=== PATIENT | female | born 1985 | race Caucasian/White ===

== ENCOUNTER 2017-11-16 13:48 | Emergency (ER) | payer SELFPAY ==
[2017-11-16 14:14] VITALS: BP 141/87; PULSE 79; RESP 18; TEMP 97.4; O2SAT 98
[2017-11-16] MEDS ORDERED: SODIUM CHLOR 0.9% 1000 ML INJ 1,000 ML IV SCH (15:35)
[2017-11-16] MEDS ORDERED: SODIUM CHLORIDE 0.9% FLUSH 10 ML FLUSH IV FLUSH PRN (15:45)
[2017-11-16] MEDS ORDERED: ONDANSETRON HCL 4 MG/2 ML VIAL IVP ONE ×2 (15:45→16:45)
--- NOTE | 2017-11-16 15:46 | PD ---
HPI Chief Complaint: GI Complaint Time Seen by Provider: 15:35 Travel History International Travel<30 days: No Contact w/Intl Traveler<30days: No History of Present Illness HPI 32-year-old female presents to the emergency Department with complaint of constant vomiting since 6 AM this morning. Says she is uncontrollably vomiting and dry heaving and has not been able to stop. She reports eating [employer] yesterday and doesn't know if this is contributing to her symptoms. She reports epigastric pain. Denies fever, chills. Just started having diarrhea. Denies hematochezia, hematemesis. Denies dysuria. Denies alcohol use, illicit drug use. Reports tobacco use. Denies others with similar symptoms. Rates the pain 05/23. Describes it as a stabbing, aching sensation. No known aggravating or relieving factors. No known allergies. No primary care provider. History of cholecystectomy. Denies other significant past medical history. Has no other medical complaints. No other modifying factors or associated signs and symptoms. PFSH Past Medical History ?: Not LMP: 11/10/2017 Social History Tobacco Use: No Allergies-Medications (Allergen,Severity, Reaction): Coded Allergies: No Known Allergies (Unverified , 11/16/17) Reported Meds & Prescriptions Reported Meds & Active Scripts Active Review of Systems Except as stated in HPI: all other systems reviewed are Neg Physical Exam Narrative GENERAL: Well-nourished, well-developed female patient, in no acute distress; afebrile; continuous dry heaving and retching SKIN: Warm and dry. HEAD: Atraumatic. Normocephalic. EYES: Pupils equal and round. No scleral icterus. No injection or drainage. ENT: Mucosa pink and moist. Airway patent. NECK: Trachea midline. CARDIOVASCULAR: Regular rate and rhythm. No murmur appreciated. RESPIRATORY: No accessory muscle use. Clear to auscultation. Breath sounds equal bilaterally. GASTROINTESTINAL: Abdomen soft, tenderness on palpation to [-], nondistended. Hepatic and splenic margins not palpable. [-] Downs's sign Bowel sounds are active 4 quadrants. Nonrigid. No rebound tenderness. No guarding. BACK: No CVA tenderness. MUSCULOSKELETAL: No obvious deformities. No clubbing. No cyanosis. No edema. NEUROLOGICAL: Awake and alert. Oriented 3. No obvious cranial nerve deficits. Motor grossly within normal limits. Normal speech. PSYCHIATRIC: Appropriate mood and affect; insight and judgment normal. Data Data Last Documented VS Vital Signs Date Time Temp Pulse Resp B/P (MAP) Pulse Ox O2 Delivery O2 Flow Rate FiO2 11/16/17 17:18 78 17 129/78 (95) 97 Room Air 11/16/17 14:14 97.4 Orders Orders Complete Blood Count With Diff (11/16/17 14:17) Comprehensive Metabolic Panel (11/16/17 14:17) Lipase (11/16/17 14:17) Urinalysis - C+S If Indicated (11/16/17 14:17) Ed Urine Pregnancytest Poc (11/16/17 14:17) Iv Access Insert/Monitor (11/16/17 15:35) Ondansetron Inj (Zofran Inj) (11/16/17 15:45) Sodium Chlor 0.9% 1000 Ml Inj (Ns 1000 M (11/16/17 15:35) Sodium Chloride 0.9% Flush (Ns Flush) (11/16/17 15:45) Lorazepam Inj (Ativan Inj) (11/16/17 16:00) Abdomen, Flat & Upright (11/16/17 ) Ketorolac Inj (Toradol Inj) (11/16/17 16:30) Ondansetron Inj (Zofran Inj) (11/16/17 16:45) Ct Abd/Pel W/O Iv Contrast (11/16/17 16:47) Chest, Single Ap (11/16/17 16:47) Sodium Chlor 0.9% 1000 Ml Inj (Ns 1000 M (11/16/17 17:30) Metoclopramide Inj (Reglan Inj) (11/16/17 17:30) Diphenhydramine Inj (Benadryl Inj) (11/16/17 17:30) Haloperidol Inj (Haldol Inj) (11/16/17 19:15) Labs Laboratory Tests Test 11/16/17 16:06 11/16/17 18:59 White Blood Count 19.4 TH/MM3 Red Blood Count 5.04 MIL/MM3 Hemoglobin 15.4 GM/DL Hematocrit 44.3 % Mean Corpuscular Volume 88.0 FL Mean Corpuscular Hemoglobin 30.5 PG Mean Corpuscular Hemoglobin Concent 34.6 % Red Cell Distribution Width 13.4 % Platelet Count 292 TH/MM3 Mean Platelet Volume 9.0 FL Neutrophils (%) (Auto) 89.5 % Lymphocytes (%) (Auto) 7.2 % Monocytes (%) (Auto) 2.6 % Eosinophils (%) (Auto) 0.1 % Basophils (%) (Auto) 0.6 % Neutrophils # (Auto) 17.4 TH/MM3 Lymphocytes # (Auto) 1.4 TH/MM3 Monocytes # (Auto) 0.5 TH/MM3 Eosinophils # (Auto) 0.0 TH/MM3 Basophils # (Auto) 0.1 TH/MM3 CBC Comment DIFF FINAL Differential Comment Blood Urea Nitrogen 14 MG/DL Creatinine 0.82 MG/DL Random Glucose 182 MG/DL Total Protein 8.0 GM/DL Albumin 4.1 GM/DL Calcium Level 9.3 MG/DL Alkaline Phosphatase 82 U/L Aspartate Amino Transf (AST/SGOT) 13 U/L Alanine Aminotransferase (ALT/SGPT) 18 U/L Total Bilirubin 0.4 MG/DL Sodium Level 138 MEQ/L Potassium Level 3.6 MEQ/L Chloride Level 107 MEQ/L Carbon Dioxide Level 22.4 MEQ/L Anion Gap 9 MEQ/L Estimat Glomerular Filtration Rate 82 ML/MIN Lipase 61 U/L Urine Color YELLOW Urine Turbidity CLEAR Urine pH 8.5 Urine Specific [place] 1.031 Urine Protein 30 mg/dL Urine Glucose (UA) 70 mg/dL Urine Ketones 10 mg/dL Urine Occult Blood NEG Urine Nitrite NEG Urine Bilirubin NEG Urine Urobilinogen 2.0 MG/DL Urine Leukocyte Esterase NEG Urine RBC 1 /hpf Urine WBC 1 /hpf Urine Mucus MOD /lpf Microscopic Urinalysis Comment CULT NOT INDICATED MDM Medical Decision Making Medical Screen Exam Complete: Yes Emergency Medical Condition: Yes Medical Record Reviewed: Yes Differential Diagnosis Gastroenteritis, bowel obstruction, Narrative Course 32-year-old female with uncontrolled vomiting and epigastric pain that started approximately 6 AM this morning. History of cholecystectomy. CBC, CMP, lipase , urinalysis, UPT ordered in triage. IV, normal saline bolus, Toradol, Zofran ordered. Dr. Camacho recommended Ativan. Ativan ordered. 1645: Patient was continued nausea. Second dose of Zofran ordered. White blood cell count 19.4. Otherwise CBC unremarkable. I discussed findings with Dr. Kathy and she agrees that the continued plan of care and recommends chest x-ray. CT abdomen/pelvis, chest x-ray ordered. 1730: Patient was continued retching and dry heaving. Reglan and Benadryl ordered. Second normal saline bolus ordered. 1804: Random glucose 182. Lipase 61. Otherwise CMP unremarkable. 1899: Report given to Memo Tang PA-C at change of shift. See his note for final patient disposition. Lashell Servin Nov 16, 2017 15:46
[2017-11-16] MEDS ORDERED: LORazepam 2 MG/ML VIAL IV PUSH ONE (16:00)
[2017-11-16 16:29] LABS: AUTOMATED NEUTROPHIL # 17.4 TH/MM3 (1.8-7.7); BASOPHIL # 0.1 TH/MM3 (0-0.2); BASOPHIL % 0.6 % (0.0-2.0); EOSINOPHIL % 0.1 % (0.0-4.0); HEMATOCRIT 44.3 % (35.0-46.0); HEMOGLOBIN 15.4 GM/DL (11.6-15.3); LYMPH % 7.2 % (9.0-44.0); LYMPHOCYTE # 1.4 TH/MM3 (1.0-4.8); MEAN CORPUSCULAR HEMOGLOBIN 30.5 PG (27.0-34.0); MEAN CORPUSCULAR HGB CONC 34.6 % (32.0-36.0); MONO % 2.6 % (0.0-8.0); MONOCYTE # 0.5 TH/MM3 (0-0.9); NEUT % 89.5 % (16.0-70.0); PLATELET COUNT 292 TH/MM3 (150-450); RED BLOOD COUNT 5.04 MIL/MM3 (4.00-5.30); RED CELL DISTRIBUTION WIDTH 13.4 % (11.6-17.2); WHITE BLOOD COUNT 19.4 TH/MM3 (4.0-11.0)
[2017-11-16] MEDS ORDERED: KETOROLAC TROMETHAMINE 30 MG/ML (IVP) VIAL IV PUSH ONE (16:30)
--- NOTE | 2017-11-16 16:44 | RADRPT ---
EXAM DATE/TIME: 11/16/2017 16:27 [facility] COMPARISON: No previous studies available for comparison. INDICATIONS : Mid abdominal pain, nausea and vomiting began this morning MEDICAL HISTORY : None. SURGICAL HISTORY : None. ENCOUNTER: Initial ACUITY: 1 day PAIN SCORE: 10/10 LOCATION: Bilateral abdomen FINDINGS: Supine and upright views of the abdomen were performed. The abdominal bowel gas pattern is normal. No air fluid levels are seen. No abnormal masses, calcifications, or organomegaly is seen. The visu alized lower lungs are clear. No evidence of free intraperitoneal gas. There is a calcified phlebol ith deep in the right pelvis. There surgical clips in the right upper quadrant. The osseous structure s are unremarkable. CONCLUSION: Normal examination for a patient of this age. Blue Beck MD on November 16, 2017 at 16:42 Board Certified Radiologist. This report was verified electronically.
[2017-11-16 16:46] LABS: ALBUMIN 4.1 GM/DL (3.4-5.0); ALT (GPT) 18 U/L (10-53); AST (GOT) 13 U/L (15-37); BICARBONATE 22.4 MEQ/L (21.0-32.0); BLOOD UREA NITROGEN 14 MG/DL (7-18); CALCIUM 9.3 MG/DL (8.5-10.1); CHLORIDE 107 MEQ/L (98-107); CREATININE 0.82 MG/DL (0.50-1.00); GLOMERULAR FILTRATION RATE 82 ML/MIN (>89); GLUCOSE,RANDOM 182 MG/DL (74-106); SODIUM (NA) 138 MEQ/L (136-145)
[2017-11-16 16:48] LABS: ALKALINE PHOSPHATASE 82 U/L (45-117); TOTAL BILIRUBIN ADULT 0.4 MG/DL (0.2-1.0)
[2017-11-16 17:18] VITALS: BP 129/78; PULSE 78; RESP 17; O2SAT 97
--- NOTE | 2017-11-16 17:25 | RADRPT ---
EXAM DATE/TIME: 11/16/2017 16:51 [facility] COMPARISON: No previous studies available for comparison. INDICATIONS : Vomiting and chest pain. MEDICAL HISTORY : None. SURGICAL HISTORY : None. ENCOUNTER: Initial ACUITY: 1 day PAIN SCORE: 10/10 LOCATION: Bilateral chest FINDINGS: A single view of the chest demonstrates the lungs to be symmetrically aerated without evidence of mas s, infiltrate or effusion. The cardiomediastinal contours are unremarkable. Osseous structures are intact. CONCLUSION: Normal examination. Sher Mendez Jr., MD on November 16, 2017 at 17:23 Board Certified Radiologist. This report was verified electronically.
[2017-11-16] MEDS ORDERED: SODIUM CHLOR 0.9% 1000 ML INJ 1,000 ML IV ONE (17:30)
[2017-11-16] MEDS ORDERED: diphenhydrAMINE HCL 50 MG/ML VIAL IV PUSH ONE (17:30)
[2017-11-16] MEDS ORDERED: METOCLOPRAMIDE HCL 10 MG/2 ML VIAL IV PUSH ONE (17:30)
--- NOTE | 2017-11-16 19:04 | RADRPT ---
EXAM DATE/TIME: 11/16/2017 18:14 [facility] COMPARISON: No previous studies available for comparison. INDICATIONS : Diffuse abdomen in epigastric region. ORAL CONTRAST: No oral contrast ingested. RADIATION DOSE: 14.95 CTDIvol (mGy) MEDICAL HISTORY : None SURGICAL HISTORY : Cholecystectomy. ENCOUNTER: Initial ACUITY: 1 day PAIN SCALE: 9/10 LOCATION: Bilateral upper quadrant TECHNIQUE: Volumetric scanning of the abdomen and pelvis was performed. Using automated exposure control and ad justment of the mA and/or kV according to patient size, radiation dose was kept as low as reasonably achievable to obtain optimal diagnostic quality images. DICOM format image data is available electro nically for review and comparison. FINDINGS: LOWER LUNGS: The visualized lower lungs are clear. LIVER: Homogeneous density without lesion for noncontrast technique. There is no dilation of the biliary tr ee. Cholecystectomy. SPLEEN: Normal size without lesion. PANCREAS: Within normal limits. KIDNEYS: Normal in size and shape. There is no mass, stone, or hydronephrosis. ADRENAL GLANDS: Within normal limits. VASCULAR: There is no aortic aneurysm. BOWEL/MESENTERY: The stomach, small bowel, and colon demonstrate no acute abnormality. The appendix is identified in the right lower quadrant and has a normal appearance. There is no free intraperitoneal air or fluid. ABDOMINAL WALL: Within normal limits. RETROPERITONEUM: There is no lymphadenopathy. BLADDER: No wall thickening or mass. REPRODUCTIVE: Anteverted uterus. No evidence of free fluid. INGUINAL: There is no lymphadenopathy or hernia. MUSCULOSKELETAL: Within normal limits for patient age. CONCLUSION: 1. Negative noncontrast CT abdomen/pelvis. Sher Garcia MD on November 16, 2017 at 19:01 Board Certified Radiologist. This report was verified electronically.
[2017-11-16] MEDS ORDERED: HALOPERIDOL LACTATE 5 MG/ML AMP IV PUSH ONE (19:15)
[2017-11-16 19:20] LABS: BILIRUBIN, URINE NEG (NEG); BLOOD, URINE NEG (NEG); GLUCOSE,URINE 70 mg/dL (NEG); KETONE, URINE 10 mg/dL (NEG); MUCUS URINE MOD /lpf (OCC); NITRITE,URINE NEG (NEG); PH, URINE 8.5 (5.0-8.5); URINE COLOR YELLOW (YELLW/STRAW); URINE LEUKOCYTE ESTERASE NEG (NEG)
[2017-11-16] MEDS ORDERED: ZOFR8TAB PO (20:24)
[2017-11-16] MEDS ORDERED: PROM1SUP8 RECTAL (20:24)
--- NOTE | 2017-11-16 20:29 | PD ---
Physical Exam Date Seen by Provider: Nov 16, 2017 Time Seen by Provider: 20:26 Narrative GENERAL: This is a well-nourished, well-developed patient, in no apparent distress. Patient's dog is laying on the bed with her. SKIN: No rashes, ecchymoses or lesions. Warm and dry. HEAD: Atraumatic. Normocephalic. EYES: PERRL, EOMI, no discharge or injection. No scleral icterus. EARS: Clear NOSE: Nasal turbinates appear normal. THROAT: Mucosa pink and moist. Airway patent. NECK: Trachea midline. supple, moves head freely. LUNGS: Clear to auscultation. CV: Regular in rhythm. ABDOMEN: Soft nontender. EXT: No clubbing cyanosis or edema. Data Data Last Documented VS Vital Signs Date Time Temp Pulse Resp B/P (MAP) Pulse Ox O2 Delivery O2 Flow Rate FiO2 11/16/17 17:18 78 17 129/78 (95) 97 Room Air 11/16/17 14:14 97.4 Orders Orders Complete Blood Count With Diff (11/16/17 14:17) Comprehensive Metabolic Panel (11/16/17 14:17) Lipase (11/16/17 14:17) Urinalysis - C+S If Indicated (11/16/17 14:17) Ed Urine Pregnancytest Poc (11/16/17 14:17) Iv Access Insert/Monitor (11/16/17 15:35) Ondansetron Inj (Zofran Inj) (11/16/17 15:45) Sodium Chlor 0.9% 1000 Ml Inj (Ns 1000 M (11/16/17 15:35) Sodium Chloride 0.9% Flush (Ns Flush) (11/16/17 15:45) Lorazepam Inj (Ativan Inj) (11/16/17 16:00) Abdomen, Flat & Upright (11/16/17 ) Ketorolac Inj (Toradol Inj) (11/16/17 16:30) Ondansetron Inj (Zofran Inj) (11/16/17 16:45) Ct Abd/Pel W/O Iv Contrast (11/16/17 16:47) Chest, Single Ap (11/16/17 16:47) Sodium Chlor 0.9% 1000 Ml Inj (Ns 1000 M (11/16/17 17:30) Metoclopramide Inj (Reglan Inj) (11/16/17 17:30) Diphenhydramine Inj (Benadryl Inj) (11/16/17 17:30) Haloperidol Inj (Haldol Inj) (11/16/17 19:15) Labs Laboratory Tests Test 11/16/17 16:06 11/16/17 18:59 White Blood Count 19.4 TH/MM3 Red Blood Count 5.04 MIL/MM3 Hemoglobin 15.4 GM/DL Hematocrit 44.3 % Mean Corpuscular Volume 88.0 FL Mean Corpuscular Hemoglobin 30.5 PG Mean Corpuscular Hemoglobin Concent 34.6 % Red Cell Distribution Width 13.4 % Platelet Count 292 TH/MM3 Mean Platelet Volume 9.0 FL Neutrophils (%) (Auto) 89.5 % Lymphocytes (%) (Auto) 7.2 % Monocytes (%) (Auto) 2.6 % Eosinophils (%) (Auto) 0.1 % Basophils (%) (Auto) 0.6 % Neutrophils # (Auto) 17.4 TH/MM3 Lymphocytes # (Auto) 1.4 TH/MM3 Monocytes # (Auto) 0.5 TH/MM3 Eosinophils # (Auto) 0.0 TH/MM3 Basophils # (Auto) 0.1 TH/MM3 CBC Comment DIFF FINAL Differential Comment Blood Urea Nitrogen 14 MG/DL Creatinine 0.82 MG/DL Random Glucose 182 MG/DL Total Protein 8.0 GM/DL Albumin 4.1 GM/DL Calcium Level 9.3 MG/DL Alkaline Phosphatase 82 U/L Aspartate Amino Transf (AST/SGOT) 13 U/L Alanine Aminotransferase (ALT/SGPT) 18 U/L Total Bilirubin 0.4 MG/DL Sodium Level 138 MEQ/L Potassium Level 3.6 MEQ/L Chloride Level 107 MEQ/L Carbon Dioxide Level 22.4 MEQ/L Anion Gap 9 MEQ/L Estimat Glomerular Filtration Rate 82 ML/MIN Lipase 61 U/L Urine Color YELLOW Urine Turbidity CLEAR Urine pH 8.5 Urine Specific [place] 1.031 Urine Protein 30 mg/dL Urine Glucose (UA) 70 mg/dL Urine Ketones 10 mg/dL Urine Occult Blood NEG Urine Nitrite NEG Urine Bilirubin NEG Urine Urobilinogen 2.0 MG/DL Urine Leukocyte Esterase NEG Urine RBC 1 /hpf Urine WBC 1 /hpf Urine Mucus MOD /lpf Microscopic Urinalysis Comment CULT NOT INDICATED MDM Medical Record Reviewed: Yes Supervised Visit with DEANNE: No Interpretation(s) Last 24 hours Impressions Chest X-Ray 11/16/17 1647 Signed Impressions: Service Date/Time: Thursday, November 16, 2017 16:51 - CONCLUSION: Normal examination. Sher Mendez Jr., MD Abdomen/Pelvis CT 11/16/177 Signed Impressions: Service Date/Time: Thursday, November 16, 2017 18:14 - CONCLUSION: 1. Negative noncontrast CT abdomen/pelvis. Sher Garcia MD Abdomen X-Ray 11/16/17 0000 Signed Impressions: Service Date/Time: Thursday, November 16, 2017 16:27 - CONCLUSION: Normal examination for a patient of this age. Blue Beck MD Laboratory Tests Test 11/16/17 16:06 11/16/17 18:59 White Blood Count 19.4 TH/MM3 Red Blood Count 5.04 MIL/MM3 Hemoglobin 15.4 GM/DL Hematocrit 44.3 % Mean Corpuscular Volume 88.0 FL Mean Corpuscular Hemoglobin 30.5 PG Mean Corpuscular Hemoglobin Concent 34.6 % Red Cell Distribution Width 13.4 % Platelet Count 292 TH/MM3 Mean Platelet Volume 9.0 FL Neutrophils (%) (Auto) 89.5 % Lymphocytes (%) (Auto) 7.2 % Monocytes (%) (Auto) 2.6 % Eosinophils (%) (Auto) 0.1 % Basophils (%) (Auto) 0.6 % Neutrophils # (Auto) 17.4 TH/MM3 Lymphocytes # (Auto) 1.4 TH/MM3 Monocytes # (Auto) 0.5 TH/MM3 Eosinophils # (Auto) 0.0 TH/MM3 Basophils # (Auto) 0.1 TH/MM3 CBC Comment DIFF FINAL Differential Comment Blood Urea Nitrogen 14 MG/DL Creatinine 0.82 MG/DL Random Glucose 182 MG/DL Total Protein 8.0 GM/DL Albumin 4.1 GM/DL Calcium Level 9.3 MG/DL Alkaline Phosphatase 82 U/L Aspartate Amino Transf (AST/SGOT) 13 U/L Alanine Aminotransferase (ALT/SGPT) 18 U/L Total Bilirubin 0.4 MG/DL Sodium Level 138 MEQ/L Potassium Level 3.6 MEQ/L Chloride Level 107 MEQ/L Carbon Dioxide Level 22.4 MEQ/L Anion Gap 9 MEQ/L Estimat Glomerular Filtration Rate 82 ML/MIN Lipase 61 U/L Urine Color YELLOW Urine Turbidity CLEAR Urine pH 8.5 Urine Specific [place] 1.031 Urine Protein 30 mg/dL Urine Glucose (UA) 70 mg/dL Urine Ketones 10 mg/dL Urine Occult Blood NEG Urine Nitrite NEG Urine Bilirubin NEG Urine Urobilinogen 2.0 MG/DL Urine Leukocyte Esterase NEG Urine RBC 1 /hpf Urine WBC 1 /hpf Urine Mucus MOD /lpf Microscopic Urinalysis Comment CULT NOT INDICATED Differential Diagnosis Differential diagnosis: Pancreatitis, diverticulitis, cyclical vomiting, gastroenteritis, UTI, pyelonephritis Narrative Course IV access is obtained. Patient was given 2 L of normal saline. She is also been given Zofran, Benadryl, Reglan and Haldol. The patient is now following having resolution of her vomiting. She has been given a p.o. challenge. The patient is tolerating p.o. She is feeling improved. Discussion with the patient regarding her cyclical vomiting. Patient reports a history of cyclical vomiting in the past. She also states that when she had her gallbladder out it seemed to improve but has returned again. She just moved to the area in the past week from [place]. She is staying in [place]. She states that she came to [place] instead of the ER in [facility] because she was told it was better to come here. I have gone back to reassess the patient at time of discharge. She states that she has once again vomited. I have informed the patient that if she is still having recurrent vomiting that we will have to go ahead and admit her to the hospital. I have stepped out to advise a photogrammetry airplane pilot to call the admitting service and the patient was noted by the airport clerk to has left AGAINST MEDICAL ADVICE. This is cyclical vomiting, AGAINST MEDICAL ADVICE Diagnosis Primary Impression: Cyclical vomiting Qualified Codes: G43.A0 - Cyclical vomiting, not intractable Additional Impression: Left against medical advice Patient Instructions: General Instructions Disposition: 07 AGAINST MEDICAL ADVICE Condition: Stable Memo Tang Nov 16, 2017 20:29
== END 2017-11-16 22:08 | disposition left against medical advice (07) ==
LOC: NEPD 13:48
DX: G43.A0 Cyclical vomiting, in migraine, not intractable (principal)
CPT/HCPCS: 71045; 74019; 74176; 80053; 81001; 83690; 84703; 85025; 96361; 96374; 96375; 96376; 99285; J1200; J1630; J1885; J2060; J2405; J2765; J7030